=== PATIENT | male | born 1955 | race Hispanic/Latino ===

== ENCOUNTER 2019-09-14 08:45 | Day surgery (SDC) | payer BC ==
[2019-09-12 16:02] LABS: EOSINOPHILS % (AUTO) 3.6 % (0.0-8.0); HEMATOCRIT 40.5 % (42-54); LYMPHOCYTES % (AUTO) 33.5 % (21.0-51.0); MEAN CORPUSCULAR HEMOGLOBIN 30.5 pg (27.0-33.0); MEAN CORPUSCULAR HGB CONC 34.8 g/dL (32.0-36.0); MEAN CORPUSCULAR VOLUME 87.6 fL (79-99); MONOCYTES % (AUTO) 9.3 % (3.0-13.0); NEUTROPHILS % (AUTO) 52.6 % (40.0-77.0); NUCLEATED RED BLOOD CELLS 0.1 % (0.0-0.19); PLATELET COUNT (AUTO) 154 K/uL (130-400); RED BLOOD CELL COUNT(AUTO) 4.62 MIL/uL (4.50-6.20); RED CELL DISTRIBUTION WIDTH 13.3 % (11.0-15.5); WHITE BLOOD COUNT (AUTO) 5.1 K/uL (4.8-10.8)
[2019-09-12 16:06] LABS: APPEARANCE,URINE Clear (CLEAR); BILIRUBIN,URINE Negative (NEGATIVE); COLOR,URINE Yellow (YELLOW); GLUCOSE, URINE (UA) Negative (NEGATIVE); KETONES,URINE Negative (NEGATIVE); LEUKOCYTE ESTERASE ,URINE Negative (NEGATIVE); NITRATE,URINE Negative (NEGATIVE); OCCULT BLOOD,URINE Negative (NEGATIVE); PROTEIN,URINE Negative (NEGATIVE); UROBILINOGEN,URINE 0.2 mg/dL (0.2-1.0)
[2019-09-12 16:21] LABS: CREATININE 1.1 mg/dL (0.5-1.5); INR 0.97 (0.85-1.15); PARTIAL THROMBOPLASTIN TIME 25.3 SEC (26.3-35.5); POTASSIUM 3.7 mmol/L (3.5-5.1); PROTHROMBIN TIME 10.2 SEC (9.6-11.6)
[2019-09-12 17:09] VITALS: BP 149/67
[2019-09-14] VITALS (9 sets, daily range): BP systolic 114–157; BP diastolic 49–81
[~2019-09-14] VITALS: Ht 165.1 cm; Wt 73.9 kg
[~2019-09-14 08:45] MED LIST: ASPI-1197 PO; ATOR40TA71 PO; LISI10TA7 PO; MECL-111 PO; METO-408 PO; SODIUM CHLORIDE 0.9% 500ML 500 ML IV SCH
[2019-09-14] MEDS ORDERED: SODIUM CHLORIDE 0.9% 1000ML 1,000 ML IV ONE (10:22)
[2019-09-14] MEDS ORDERED: AEC81 PO (11:21)
[2019-09-14] MEDS ORDERED: NITR0.4T50 SL (12:40)
--- NOTE | 2019-09-14 13:15 | NUR ---
PROCEDURE PT TAKEN TO TRACTOR DISTRIBUTOR FOR SCHEDULED PROCEDURE VIA BED,NO DISTRESS NOTED.
[2019-09-14] MEDS ORDERED: IOHEXOL-350 75 ML VIAL IV ONE ×2 (13:33→14:37)
[2019-09-14] MEDS ORDERED: IOHEXOL-350 50ML VIAL IV ONE (13:33)
[2019-09-14] MEDS ORDERED: NICARDIPINE HCL 25 MG/10 ML ML IV ONE (13:33)
[2019-09-14] MEDS ORDERED: MIDAZOLAM HCL 1 MG/ML 2ML VIAL ONE (13:34)
[2019-09-14] MEDS ORDERED: FENTANYL CITRATE PF 50 MCG/1 ML 2ML VIAL ONE (13:34)
[2019-09-14] MEDS ORDERED: LIDOCAINE HCL 2% 20ML ONE (13:34)
[2019-09-14] MEDS ORDERED: NITROGLYCERIN 5 MG/ML 10 ML VIAL IV ONE (13:42)
[2019-09-14] MEDS ORDERED: HEPARIN SODIUM 1000UNIT/ML 10ML VIAL ONE (13:50)
[2019-09-14] MEDS ORDERED: SODIUM CHLORIDE 0.9% 1000ML 1,000 ML IV SCH (14:56)
--- NOTE | 2019-09-14 17:40 | NUR ---
DISCHARGE PT DISCHARGED VIA WHEELCHAIR WITH BROTHER. PT STABLE. NO COMPLAINTS MADE. CATH SITE TO RIGHT RADIAL SOFT, DRESSING DRY AND INTACT, NO OOZING NO HEMATOMA. DISCHARGE INSTRUCTIONS GIVEN TO PT AND BORTHER, BOTH VERBALIZED UNDERSTANDING.
== END 2019-09-14 17:40 | disposition home or self-care (01) ==
LOC: DAH 08:45
PROVIDERS: ATTEND Internal Medicine Cardiovascular Disease
DX: I25.118 Atherosclerotic heart disease of native coronary artery with other forms of angina pectoris (principal); R94.39 Abnormal result of other cardiovascular function study; I10 Essential (primary) hypertension; Z79.82 Long term (current) use of aspirin; Z79.899 Other long term (current) drug therapy; Z98.890 Other specified postprocedural states; Z72.89 Other problems related to lifestyle; Z87.891 Personal history of nicotine dependence; Z82.49 Family history of ischemic heart disease and other diseases of the circulatory system; Z79.01 Long term (current) use of anticoagulants
CPT/HCPCS: 36415; 71045; 80048; 81003; 85025; 85610; 85730; 93005; 93458; A4215; A4216; A4221; A4222; A4223 ×3; A4606; A4663; C1769; C1894; J1644 ×2; J2250; J3010; J3490 ×3; J7030; Q9967; 99156; 99157